=== PATIENT | male | born 1990 | race Caucasian/White ===

== ENCOUNTER 2020-03-28 17:03 | Inpatient (IN) | payer SELFPAY ==
[~2020-03-28] VITALS: Ht 177.8 cm; Wt 127.3 kg
[2020-03-28] MEDS ORDERED: ZPAK PO (17:23)
[2020-03-28] MEDS ORDERED: PREDNISONE20 MG PO (17:23)
[2020-03-28] MEDS ORDERED: PHENERGAN6.25 MG/5 (17:24)
[2020-03-28] MEDS ORDERED: ALBUTEROL SULF8.5 GM (17:24)
[2020-03-28 17:35] LABS: BASOPHILS 0.1 % (0-2); EOSINOPHILS 0 % (0-7); HEMATOCRIT 46.4 % (42.0-54.0); HEMOGLOBIN 15.9 g/dL (13.5-17.5); IMMATURE GRANULOCYTES 0.3 % (0-5); LYMPHOCYTES 6.8 % (15-50); MCH 28.5 pg (26.0-34.0); MCHC 34.3 g/dL (31.0-37.0); MCV 83.3 fL (80.0-100.0); MEAN PLATELET VOLUME 9.9 fL (7.4-10.4); MONOCYTES 5.3 % (2-11); NEUTROPHILS 87.5 % (40-80); PLATELET COUNT 248 10x3/uL (130-400); RBC 5.57 10x6/uL (4.20-6.10); RDW 13.8 % (11.5-14.5); WBC 15.8 10x3/uL (4.8-10.8)
[2020-03-28 17:47] LABS: CALC OSMOLALITY 278 mosm/kg (275-300); CALCIUM 8.3 mg/dL (8.5-10.1); CHLORIDE - SERUM 101 mmol/L (98-107); CREATININE - SERUM 1.1 mg/dL (0.6-1.3); GLUCOSE 159 mg/dL (74-106); POTASSIUM - SERUM 3.3 mmol/L (3.5-5.1); SODIUM 138 mmol/L (136-145); UREA NITROGEN 12 mg/dL (7-18); eGFR NON AFRICAN AMERICAN 85 mL/min (90-120)
[2020-03-28 17:54] LABS: APTT 29.7 SECONDS (22.8-39.4); INR 1.01 (0.85-1.17); PROTIME 13.2 SECONDS (11.6-15.0)
[2020-03-28 18:01] LABS: ALBUMIN 3.2 g/dL (3.4-5.0); ALKALINE PHOSPHATASE 72 U/L (30-120); ALT (SGPT) 75 U/L (10-68); BILIRUBIN - TOTAL 0.66 mg/dL (0.2-1.3); CKMB 0.5 U/L (0.0-3.6); CREATINE KINASE 118 UL (21-232); PRO BNP 23 pg/mL (0-125); PROTEIN - SERUM 7.8 g/dL (6.4-8.2)
[2020-03-28 18:05] LABS: TROPONIN-I < 0.017 ng/mL (0.000-0.060)
[2020-03-28 19:58] VITALS: BP 131/89
[2020-03-28 21:27] VITALS: BP 125/78
[2020-03-28 23:04] VITALS: BP 123/81; Ht 177.8 cm; Wt 127.3 kg
--- NOTE | 2020-03-29 00:21 | NUR ---
NOTIFIED BY CAR REPAIRER THAT REMDESIVIR WILL BE ACCESSIBLE IN AM.
--- NOTE | 2020-03-29 00:23 | NUR ---
GIVEN UPDATE TO PTS FAMILY, ALL QUESTIONS ANSWERED TO THE BEST OF MY ABILITY AT THIS TIME. PT IN BED WATCHING TV, RR EVEN AND UNLABORED. NO S/SX OF DISTRESS OBSERVED. ZITHROMAX COMPLETED AND PIV SALINE LOCKED AT THIS TIME. WAITING ON LAB TO NOTFIY WHEN FIRST ORDERED DOSE OF CCP FFP WILL BE AVAILBLE TO START. PT AWARE AND AGREES WITH POC. EDUCATED ON USE OF CALL LIGHT FOR ASSISTANCE. NO FURTHER NEEDS EXPRESSED. WILL CPOC.
[2020-03-29 00:31] VITALS: BP 130/87
[2020-03-29 00:53] VITALS: BP 130/87
--- NOTE | 2020-03-29 03:00 | NUR ---
PT RESTING IN BED READING. NO DISTRESS OBSERVED. CALL LIGHT IN REACH AND UTALIZED. WILL CPOC.
[2020-03-29 06:01] LABS: BASOPHILS 0.2 % (0-2); EOSINOPHILS 0 % (0-7); HEMATOCRIT 43.9 % (42.0-54.0); HEMOGLOBIN 15.2 g/dL (13.5-17.5); IMMATURE GRANULOCYTES 1.5 % (0-5); LYMPHOCYTES 14.6 % (15-50); MCH 28.7 pg (26.0-34.0); MCHC 34.6 g/dL (31.0-37.0); MCV 82.8 fL (80.0-100.0); MEAN PLATELET VOLUME 10.2 fL (7.4-10.4); MONOCYTES 4.6 % (2-11); NEUTROPHILS 79.1 % (40-80); PLATELET COUNT 276 10x3/uL (130-400); RDW 13.8 % (11.5-14.5)
[2020-03-29 06:11] LABS: D-DIMER-QUANTITATIVE 0.33 ug/mLFEU (0.20-0.54)
[2020-03-29 06:31] LABS: WBC 5.4 10x3/uL (4.8-10.8)
[2020-03-29 06:59] LABS: ALKALINE PHOSPHATASE 70 U/L (30-120); ALT (SGPT) 62 U/L (10-68); BILIRUBIN - TOTAL 0.39 mg/dL (0.2-1.3); CALC OSMOLALITY 277 mosm/kg (275-300); CALCIUM 8.3 mg/dL (8.5-10.1); CARBON DIOXIDE 24.8 mmol/L (21.0-32.0); CHLORIDE - SERUM 102 mmol/L (98-107); CREATINE KINASE 121 UL (21-232); CREATININE - SERUM 1.1 mg/dL (0.6-1.3); GLUCOSE 139 mg/dL (74-106); LDH 238 U/L (85-227); PHOSPHOROUS 2.3 mg/dL (2.5-4.9); PROTEIN - SERUM 7.7 g/dL (6.4-8.2); SODIUM 138 mmol/L (136-145); UREA NITROGEN 13 mg/dL (7-18); eGFR NON AFRICAN AMERICAN 85 mL/min (90-120)
[2020-03-29 07:01] LABS: FERRITIN 1208 ng/mL (3-244); POTASSIUM - SERUM 3.8 mmol/L (3.5-5.1)
[2020-03-29 07:05] LABS: C-REACTIVE PROTEIN 22.2 mg/dL (0.0-0.9)
[2020-03-29 08:27] VITALS: BP 136/90
[2020-03-29 14:44] VITALS: BP 154/96
[2020-03-29 21:29] VITALS: BP 136/86
[2020-03-30 04:00] VITALS: BP 107/70
[2020-03-30 07:21] LABS: BASOPHILS 0.2 % (0-2); EOSINOPHILS 0 % (0-7); HEMATOCRIT 44.5 % (42.0-54.0); HEMOGLOBIN 15.3 g/dL (13.5-17.5); IMMATURE GRANULOCYTES 0.9 % (0-5); LYMPHOCYTES 15.1 % (15-50); MCH 28.7 pg (26.0-34.0); MCHC 34.4 g/dL (31.0-37.0); MCV 83.5 fL (80.0-100.0); MEAN PLATELET VOLUME 10.1 fL (7.4-10.4); MONOCYTES 5.3 % (2-11); NEUTROPHILS 78.5 % (40-80); RBC 5.33 10x6/uL (4.20-6.10); RDW 13.7 % (11.5-14.5)
[2020-03-30 07:26] LABS: PLATELET COUNT 335 10x3/uL (130-400); WBC 10.5 10x3/uL (4.8-10.8)
[2020-03-30 07:29] LABS: CALC OSMOLALITY 285 mosm/kg (275-300); CALCIUM 8.7 mg/dL (8.5-10.1); CARBON DIOXIDE 25.1 mmol/L (21.0-32.0); CHLORIDE - SERUM 104 mmol/L (98-107); CREATININE - SERUM 1.1 mg/dL (0.6-1.3); GLUCOSE 135 mg/dL (74-106); POTASSIUM - SERUM 3.5 mmol/L (3.5-5.1); SODIUM 141 mmol/L (136-145); UREA NITROGEN 20 mg/dL (7-18); eGFR NON AFRICAN AMERICAN 85 mL/min (90-120)
--- NOTE | 2020-03-30 07:33 | NUR ---
ASSESSED PT BEFORE STARTING PLASMA. RUL AND LLL WERE EVIDENT OF EXPIRATORY WHEEZING. BREATH SOUNDS DID NOT CHANGE AFTER FIRST 15 MINS. STARTED PLASMA AT 75 ML/HR. AFTER NO S/S OF DISTRESS OR REACTION IN FIRST 15 MINS, INCREASED PLASMA RATE TO 100 ML/HR.
--- NOTE | 2020-03-30 08:05 | NUR ---
REPORT RECIEVED. PT SITTING UP IN BED. RR EVEN AND UNLABORED ON 4L NC. HE HAS A R FA PIV INFUSING ANTIBIOTICS AT THIS TIME. BED LOCKED AND IN LOWEST POSITION, CALL LIGHT WITHIN REACH. WILL CTM
[2020-03-30 08:31] VITALS: BP 116/77
[2020-03-30 12:16] VITALS: BP 118/68
--- NOTE | 2020-03-30 15:51 | NUR ---
I have reviewed this patient and I concur with the Shift Assessment completed by the Licensed Practical Nurse today this shift.
[2020-03-30 17:19] VITALS: BP 106/70
--- NOTE | 2020-03-30 18:00 | NUR ---
I have reviewed this patient and I concur with the Shift Assessment completed by the Licensed Practical Nurse today this shift.
--- NOTE | 2020-03-30 20:00 | NUR ---
REPORT RECEIVED, WILL CONT POC. PT A&O, UP IN BED PLAYING ON HIS PHONE. NO S/S OF DISTRESSED OBSERVERD. RR EVEN AND UNLABORED ON 4L VIA NC, WHEEZING IN ANGELA NOTED. DENIES NEEDS AT THIS TIME. BED LOCKED AND LOWERED, CALL LIGHT IN REACH. WILL CONT TO MONITOR.
[2020-03-30 20:26] VITALS: BP 130/86
[2020-03-30 23:22] VITALS: BP 112/63
[2020-03-31 06:03] VITALS: BP 139/51
[2020-03-31 06:51] LABS: BASOPHILS 0.2 % (0-2); EOSINOPHILS 0.1 % (0-7); HEMOGLOBIN 14.9 g/dL (13.5-17.5); LYMPHOCYTES 16.4 % (15-50); MCH 28.3 pg (26.0-34.0); MCHC 33.9 g/dL (31.0-37.0); MCV 83.7 fL (80.0-100.0); MONOCYTES 10.2 % (2-11); NEUTROPHILS 71.1 % (40-80); PLATELET COUNT 336 10x3/uL (130-400); RBC 5.26 10x6/uL (4.20-6.10); RDW 13.8 % (11.5-14.5); WBC 11.7 10x3/uL (4.8-10.8)
[2020-03-31 07:17] VITALS: BP 101/56
[2020-03-31 07:17] LABS: ALBUMIN 3.1 g/dL (3.4-5.0); ALKALINE PHOSPHATASE 57 U/L (30-120); ALT (SGPT) 49 U/L (10-68); BILIRUBIN - DIRECT 0.11 mg/dL (0.00-0.30); BILIRUBIN - INDIRECT 0.47 mg/dL (0.00-1.00); BILIRUBIN - TOTAL 0.58 mg/dL (0.2-1.3); CALC OSMOLALITY 282 mosm/kg (275-300); CALCIUM 8.6 mg/dL (8.5-10.1); CARBON DIOXIDE 24.8 mmol/L (21.0-32.0); CHLORIDE - SERUM 105 mmol/L (98-107); CREATININE - SERUM 0.9 mg/dL (0.6-1.3); GLUCOSE 102 mg/dL (74-106); PROTEIN - SERUM 7.3 g/dL (6.4-8.2); SODIUM 141 mmol/L (136-145); UREA NITROGEN 18 mg/dL (7-18); eGFR NON AFRICAN AMERICAN > 90 mL/min (90-120)
--- NOTE | 2020-03-31 09:00 | NUR ---
REPORT RECIEVED. PT SITTING UP IN BED. RR EVEN AND UNLABORED ON 4L NC. HE HAS A R FA PIV THAT IS SL. BED LOCKED AND IN LOWEST POSITION, CALL LIGHT WITHIN REACH. WILL CTM
[2020-03-31 11:20] VITALS: BP 111/51
--- NOTE | 2020-03-31 11:21 | MORECARE ---
CASE MANAGEMENT DISCHARGE SUMMARY PATIENT: MINISTERIO TORRES UNIT: [id number] ADM DATE: 03/28/20 AGE: 29 : [birth year] SEX: M ROOM/BED: D.2135 AUTHOR: STEPHANIE SOLITARIO PHYSICIAN: REFERRING PHYSICIAN: TAMIE CHACON MD DATE OF SERVICE: 03/31/20 Discharge Plan Patient Name: MINISTERIO TORRES Facility: [facility]:[place] : 1990 Planned Disposition: Home Anticipated Discharge Date: 04/02/20 Discharge Date: Expected LOS: 5 Initial Reviewer: [email or web address] Initial Review Date: 03/31/2020 Generated: 03/31/20 12:21 pm Patient Name: MINISTERIO TORRES Page [id number] at 1121 All edits/amendments must be made on the electronic document DICTATION DATE: 03/31/20 112 COUNTERPERSON: MAYTE 03/31/20 1121 RPT#: [id number] DC DATE: STATUS: ADM IN [facility] [address] [place] [address] END OF REPORT
--- NOTE | 2020-03-31 11:31 | MORECARE ---
CASE MANAGEMENT DISCHARGE SUMMARY PATIENT: MINISTERIO TORRES UNIT: [id number] ADM DATE: 03/28/20 AGE: 29 : [birth year] SEX: M ROOM/BED: D.2134 AUTHOR: KASSI,DOC PHYSICIAN: REFERRING PHYSICIAN: TAMIE CHACON MD DATE OF SERVICE: 03/31/20 Discharge Plan Patient Name: MINISTERIO TORRES Facility: [facility]:[place] : 1990 Planned Disposition: Home Anticipated Discharge Date: 04/02/20 Discharge Date: Expected LOS: 5 Initial Reviewer: [email or web address] Initial Review Date: 03/31/2020 Generated: 03/31/20 12:30 pm Comments DCP- Discharge Planning Updated by [email or web address]: Travon Braxton on 03/31/20 10:[address] Patient Name: MINISTERIO TORRES Admission Status: ER Accout number: [id number] Admission Date: 03-28-2020 : 1990 Admission Diagnosis:COVID-19 Attending: MABEL CHACON Current LOS: 3 Anticipated DC Date: 04-02-2020 Planned Disposition: Home Primary Insurance: UNINSURED DISCOUNT PLAN Discharge Planning Comments: CM met with patient to complete initial dc planning assessment. CM educated patient on the CM role and verbal consent given by patient to complete assessment. CM verified patient's address, phone number, and emergency contact phone numbers. Patient lives at home with family. At discharge patient plans to return home and feels this is a safe discharge. CM discussed availability of home health, rehab services, and medical equipment. Patient declined HH, SNF, LTAC, and IPR. No other known discharge needs at this time. 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 Currently insurance is not reinstated. Transportation provider at discharge will be with his mother, Nieves Torres [phone]. CM will continue to follow and will assist as needed with dc plans/needs. Hvac Residential Service Technician: Travon Braxton DCPIA - Discharge Planning Initial Assessment Updated by [email or web address]: Travon Braxton on 03/31/20 11:24 am * Is the patient Alert and Oriented? Yes * How many steps to enter\exit or inside your home? 0/0 * PCP None at this time * Pharmacy [facility] [address] * Preadmission Environment Home with Family * ADLs Independent * Equipment None * List name and contact numbers for known caregivers / representatives who currently or will assist patient after discharge: Nieves Torres (Mother) - [phone] * Verbal permission to speak to the caregivers and representatives has been obtained from the patient. Yes * Community resources currently utilized None * Additional services required to return to the preadmission environment? No * Can the patient safely return to the preadmission environment? Yes * Has this patient been hospitalized within the prior 30 days at any hospital? No Last DP export: 03/31/20 10:21 am Patient Name: MINISTERIO TORRES Page 34234 at 1131 All edits/amendments must be made on the electronic document DICTATION DATE: 03/31/20 1130 SURGICAL SERVICES COORDINATOR: MAYTE 03/31/20 1130 RPT#: [id number] DC DATE: STATUS: ADM IN [facility] [address] [place] [address] END OF REPORT
--- NOTE | 2020-03-31 13:19 | NUR ---
I have reviewed this patient and I concur with the Shift Assessment completed by the Licensed Practical Nurse today this shift.
[2020-03-31 16:04] VITALS: BP 120/74
[2020-03-31 19:38] VITALS: BP 140/73
--- NOTE | 2020-03-31 19:49 | NUR ---
REPORT RECEIVED WILL CONT POC. PT A&O, UP IN BED PLAYING ON PHONE. NO S/S OF DISTRESSED OBSERVED. RR EVEN AND UNLABORED ON 2L VIA NC. AUDIBLE WHEEZING IN ANGELA NOTED. PT DENIES NEEDS AT THIS TIME. BED LOCKED AND LOWERED, CALL LIGHT IN REACH. ASSESSMENT COMPLETED AT THIS TIME. WILL CONT TO MONITOR.
[2020-04-01 06:14] LABS: BASOPHILS 0.2 % (0-2); EOSINOPHILS 0 % (0-7); HEMATOCRIT 41.7 % (42.0-54.0); HEMOGLOBIN 14.4 g/dL (13.5-17.5); IMMATURE GRANULOCYTES 5.6 % (0-5); LYMPHOCYTES 18.9 % (15-50); MCH 29.1 pg (26.0-34.0); MCHC 34.5 g/dL (31.0-37.0); MCV 84.2 fL (80.0-100.0); MEAN PLATELET VOLUME 10.3 fL (7.4-10.4); MONOCYTES 12.8 % (2-11); NEUTROPHILS 62.5 % (40-80); PLATELET COUNT 317 10x3/uL (130-400); RBC 4.95 10x6/uL (4.20-6.10); RDW 13.6 % (11.5-14.5); WBC 12.8 10x3/uL (4.8-10.8)
[2020-04-01 06:18] LABS: CALC OSMOLALITY 281 mosm/kg (275-300); CALCIUM 8.4 mg/dL (8.5-10.1); CARBON DIOXIDE 27.2 mmol/L (21.0-32.0); CHLORIDE - SERUM 106 mmol/L (98-107); GLUCOSE 94 mg/dL (74-106); POTASSIUM - SERUM 4.4 mmol/L (3.5-5.1); SODIUM 140 mmol/L (136-145); UREA NITROGEN 22 mg/dL (7-18); eGFR NON AFRICAN AMERICAN > 90 mL/min (90-120)
[2020-04-01 07:29] VITALS: BP 142/76
[2020-04-01 08:33] LABS: ALBUMIN 2.9 g/dL (3.4-5.0); BILIRUBIN - DIRECT 0.06 mg/dL (0.00-0.30); BILIRUBIN - INDIRECT 0.24 mg/dL (0.00-1.00); BILIRUBIN - TOTAL 0.3 mg/dL (0.2-1.3); PROTEIN - SERUM 6.8 g/dL (6.4-8.2)
--- NOTE | 2020-04-01 09:29 | NUR ---
PT ON ROOM AIR AT PRESENT. PULSE OX 97%, STATES NO DISTRESS.
--- NOTE | 2020-04-01 10:06 | NUR ---
PT ABLE TO GET 1500 ON INCENTIVE SPIROMETRY.
[2020-04-01] MEDS ORDERED: ZITHROMAX250 MG PO (10:22)
[2020-04-01] MEDS ORDERED: OMNICEF300 MG PO (10:22)
[2020-04-01] MEDS ORDERED: DECADRON4 MG PO (10:23)
[2020-04-01] MEDS ORDERED: VENTOLIN HFA [SP8 GM INH (10:24)
[2020-04-01 10:37] VITALS: BP 134/68
--- NOTE | 2020-04-01 17:29 | NUR ---
PT FINISHED WITH DOSE OF REMDISIVER, IV REMOVED. INSTRUCTIONS REVIEWED. WHEELED TO ER FOR DISCHARGE.
--- NOTE | 2020-04-02 09:38 | MORECARE ---
CASE MANAGEMENT DISCHARGE SUMMARY PATIENT: MINISTERIO TORRES UNIT: [id number] ADM DATE: 03/28/20 AGE: 29 : 89 SEX: M ROOM/BED: D.2138 AUTHOR: KASSI,DOC PHYSICIAN: REFERRING PHYSICIAN: TAMIE CHACON MD DATE OF SERVICE: 04/02/20 Discharge Plan Patient Name: MINISTERIO TORRES Facility: [facility]:[place] : 1990 Planned Disposition: Home Anticipated Discharge Date: 04/02/20 Discharge Date: 04/01/2020 Expected LOS: 5 Initial Reviewer: [email or web address] Initial Review Date: 03/31/2020 Generated: 04/02/20 10:37 am Comments DCP- Discharge Planning Updated by [email or web address]: Travon Braxton on 03/31/20 10:[address] Patient Name: MINISTERIO TORRES Admission Status: ER Accout number: [id number] Admission Date: 03-28-2020 : 1990 Admission Diagnosis:COVID-19 Attending: MABEL CHACON Current LOS: 3 Anticipated DC Date: 04-02-2020 Planned Disposition: Home Primary Insurance: UNINSURED DISCOUNT PLAN Discharge Planning Comments: CM met with patient to complete initial dc planning assessment. CM educated patient on the CM role and verbal consent given by patient to complete assessment. CM verified patient's address, phone number, and emergency contact phone numbers. Patient lives at home with family. At discharge patient plans to return home and feels this is a safe discharge. CM discussed availability of home health, rehab services, and medical equipment. Patient declined HH, SNF, LTAC, and IPR. No other known discharge needs at this time. 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 Currently insurance is not reinstated. Transportation provider at discharge will be with his mother, Nieves Torres [phone]. CM will continue to follow and will assist as needed with dc plans/needs. Prop Setter: Travon Braxton DCPIA - Discharge Planning Initial Assessment Updated by [email or web address]: Travon Braxton on 03/31/20 11:24 am * Is the patient Alert and Oriented? Yes * How many steps to enter\exit or inside your home? 0/0 * PCP None at this time * [facility]acy [facility] [address] * Preadmission Environment Home with Family * ADLs Independent * Equipment None * List name and contact numbers for known caregivers / representatives who currently or will assist patient after discharge: Nieves Torres (Mother) - [phone] * Verbal permission to speak to the caregivers and representatives has been obtained from the patient. Yes * Community resources currently utilized None * Additional services required to return to the preadmission environment? No * Can the patient safely return to the preadmission environment? Yes * Has this patient been hospitalized within the prior 30 days at any hospital? No Last DP export: 03/31/20 10:31 am Patient Name: MINISTERIO TORRES Page 28137 at 0938 All edits/amendments must be made on the electronic document DICTATION DATE: 04/02/20936 LAMINATING MACHINE OPERATOR: MAYTE 04/02/20936 RPT#: [id number] DC DATE:04/01/20 STATUS: DIS IN [facility] [address] [place] [address] END OF REPORT
== END 2020-04-01 17:30 | disposition home or self-care (01) | DRG 177 ==
LOC: D.ER 17:03 → D.M2 19:13
PROVIDERS: Family Medicine; Internal Medicine Pulmonary Disease; ADMIT Emergency Medicine; ATTEND Emergency Medicine
PROC: XW033E5 Introduction of Remdesivir Anti-infective into Peripheral Vein, Percutaneous Approach, New Technology Group 5 (ICD-10-PCS; principal; 2020-03-28)
DX: U07.1 COVID-19 (principal); J12.89 Other viral pneumonia; J96.01 Acute respiratory failure with hypoxia; Z68.41 Body mass index [BMI] 40.0-44.9, adult; E66.01 Morbid (severe) obesity due to excess calories; E87.6 Hypokalemia